=== PATIENT | female | born 1980 | race Caucasian/White ===

== ENCOUNTER 2023-07-21 07:32 | Outpatient (AMB) | payer BC, SELFPAY ==
--- NOTE | 2023-07-21 07:42 | A.OFFPC_ITS ---
Vital Signs 07/21/23 07:47 Height 5 ft 6 in Weight 219 lb BMI 35.3 BP 130/85 Blood Pressure Location Lt brachial Position Sitting Pulse 75 Pulse Source Pulse Oximeter Pulse Oximetry (%) 98 Oxygen Delivery Method Room Air Intake Visit Reasons: New patient-requesting physical Intake Note: Pt is here today as a New Patient for a PE Allergies mold Adverse Reaction (Uncoded 07/21/23 07:47) cough Medication List - Last Reconciled 07/21/23 by Janeth Villalobos MD No Known Home Meds Tobacco use date assessed: 07/21/23 Dental Screening Dental Screen Date: 07/21/23 Did you have a dental visit in the last 12 months?: No Was dental information given to patient?: No HPI New patient-requesting physical HPI Details Patient presents for new patient physical PFSH Family History (Updated 07/21/23 @ 08:12 by Janeth Villalobos MD) Father DM (diabetes mellitus) Social History (Updated 07/21/23 @ 08:20 by Janeth Villalobos MD) 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 1. Little interest or pleasure in doing things: not at all 2. Feeling down, depressed, or hopeless: several days 3. Trouble falling or staying asleep, or sleeping too much: not at all 4. Feeling tired or having little energy: several days 5. Poor appetite or overeating: several days 6. Feeling bad about yourself - or that you are a failure or have let yourself or your family down: not at all 7. Trouble concentrating on things, such as reading the newspaper or watching television: not at all 8. Moving or speaking so slowly that other people could have noticed. Or the opposite - being so fidgety or restless that you have been moving around a lot more than usual: not at all 9. Thoughts that you would be better off or of hurting yourself in some way: not at all Total score: 3 Depression Screening Interpretation: Negative Depression Screening Done: Yes Source: Developed by Drs. Charan Rodriguez, Noe Gifford and colleagues, with an educational terese from [employer]. Thrive Questionnaire Date Thrive assessed: 07/21/23 I am a: Patient What is your living situation today?: I have a steady place to live Within the past 12 months, did the food you bought not last and you didn't have the money to get more?: Never true Within the past 12 months, did you worry whether your food would run out before you got money to buy more?: Never true Do you have trouble paying for medicines?: No Do you have trouble getting transportation to medical appointments?: No Do you have trouble paying your heating and electricity bill?: No Do you have trouble taking care of your child, family member or friend?: No Do you have trouble with day-to-day activities such as bathing, preparing meals, shopping, managing finances, etc.?: No Are you currently unemployed and looking for a job?: No Are you interested in more education?: No THRIVE Score: 0 AUDIT C Alcohol Use Questionnaire (AUDIT-C) 1. How often do you have a drink containing alcohol?: Monthly or less 2. How many drinks containing alcohol do you have on a typical day when you are drinking?: 1 or 2 3. How often do you have six or more drinks on one occasion?: Never Total Score: 1 SAMRA-7 AMB Questionnaire SAMRA-7 Date SAMAR - 7 assessed: 07/21/23 Feeling nervous, anxious, or on edge: 0 = Not at all Not being able to stop or control worryin = Several days Worrying too much about different things: 0 = Not at all Trouble relaxin = Not at all Being so restless that it is hard to sit still: 0 = Not at all Becoming easily annoyed or irritable: 1 = Several days Feeling afraid as if something awful might happen: 0 = Not at all Total SAMRA-7 score (0-4 normal; 5-9 mild; 10-14 moderate; 15-21 severe): 2 Source: Developed by Elisabet Willett Kurt Kroenke and colleagues, with an educational terese from [employer]. Review of Systems Const All systems reviewed & are unremarkable except as noted in HPI and below Reports no additional complaints Eyes Reports no additional complaints ENT Reports no additional complaints Card Reports no additional complaints Resp Reports no additional complaints GI Reports no additional complaints Reports no additional complaints Physical exam (Primary Care) Vital Signs: Last Vital Signs Pulse 75 07/21/23 07:47 BP 130/90 H 07/21/23 07:47 Pulse Ox 98 07/21/23 07:47 Oxygen Delivery Method Room Air 07/21/23 07:47 BMI result Body Mass Index 35.3 Tobacco/Smoking Status: Tobacco use Status Tobacco use date assessed 07/21/23 07/21/23 07:52 Patient Tobacco Use Status Former Tobacco user 07/21/23 08:20 e-Cigarette/Vaping Use Never Used 07/21/23 08:20 PHQ-9: PHQ-9 Score PHQ-9: Total score 3 07/21/23 08:08 Depression Screening Interpretation: Negative Thrive Assessment: Date of Thrive Assessment Date Thrive assessed 07/21/23 07/21/23 07:54 Const General: no acute distress HENMT Head: Yes normal to inspection Face and sinus: Yes normal facial exam Mouth: Normal oral and palatal mucosa present Eyes General: appearance normal, both eyes and all related structures Neck Neck: Yes no lymphadenopathy and Yes supple Resp Effort & Inspection: normal respiratory effort Auscultation: clear to auscultation bilaterally Cardio Rhythm: regular rhythm Heart sounds: S1 normal heart sound present and S2 normal heart sound present GI Inspection: Yes normal to inspection Palpation (GI): Soft to palpation Percussion: Yes normal to percussion Auscultation: normal bowel sounds Assessment and Plan Assessment & Plan (1) History of appendectomy: Code(s): Z90.49 - Acquired absence of other specified parts of digestive tract (2) Normal pelvic exam: Comment: Dr. 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 She will return for fasting blood work. Screening colonoscopy discussed with the patient she declined she agreed to Cologuard. We will borderline elevated blood pressure low-sodium diet regular exercise weight loss discussed with the patient follow-up in 2 months Orders: Orders Vitamin D 25-OH Total Today Z00.00 - Encounter for general adult medical examination without abnormal findings Lipid Panel Today Z00.00 - Encounter for general adult medical examination without abnormal findings Complete Blood Count Auto Diff Today Z00.00 - Encounter for general adult medical examination without abnormal findings TSH reflex Free T4 Today Z00.00 - Encounter for general adult medical examination without abnormal findings Comprehensive [place]. Panel Fast Today Z00.00 - Encounter for general adult medical examination without abnormal findings Referrals Cologuard Test Z12.11 - Encounter for screening for malignant neoplasm of colon, Z12.12 - Encounter for screening for malignant neoplasm of rectum Inventory Technician Nutrition Referral E66.3 - Overweight Coding Level of Care Code New Pt Prev Care 40-64y(09454) Diagnoses History of appendectomy Z90.49 Normal pelvic exam Z01.419 Hx of screening mammography Z92.89 Annual physical exam Z00.00
[2023-07-21 07:47] VITALS: BP 130/85; PULSE 75; O2SAT 98; BMI 35.3
== END 2023-07-21 09:02 | disposition home or self-care (01) ==
PROVIDERS: PCP Internal Medicine; Visit Provider Internal Medicine
DX: Z90.49 Acquired absence of other specified parts of digestive tract (principal); Z01.419 Encounter for gynecological examination (general) (routine) without abnormal findings; Z92.89 Personal history of other medical treatment; Z00.00 Encounter for general adult medical examination without abnormal findings
CPT/HCPCS: 99386

== ENCOUNTER 2023-07-28 08:01 | Outpatient (REF) | payer BC, SELFPAY ==
[2023-07-28 10:36] LABS: MANUAL DIFF FLAG NO
[2023-07-28 10:45] LABS: Basophils Percent Auto 0.7 % (0-2); Imm Gran Abs Auto 0.02 X10*3/uL (0.00-0.03); Neutrophils Absolute Auto 5.2 x10*3/uL (2.0-8.3)
[2023-07-28 11:34] LABS: Alanine Aminotransferase 13 U/L (0-31); Albumin Level 4.2 g/dL (3.5-5.0); Alkaline Phosphatase 69 U/L (39-117); Aspartate Amino Transferase 12 U/L (5-31); Bilirubin Total 0.5 mg/dL (0.0-1.0); Blood Urea Nitrogen 22 mg/dL (9-16); Calcium 9.1 mg/dL (8.4-10.2); Cholesterol 195 mg/dL (<200); Estimated Glomerular Filt Rate > 60; Glucose Fasting 91 mg/dL (60-99); HDL Cholesterol 67 mg/dL (>40); LDL Cholesterol Calculated 117 mg/dL (<100); Potassium 4.3 mmol/L (3.3-5.1); Sodium 140 mmol/L (135-145); Total Protein 7.6 g/dL (6.5-8.0); Triglycerides 59 mg/dL (<150)
[2023-07-28 11:39] LABS: TSH reflex Free T4 0.33 uIU/mL (0.32-4.0); Vitamin D 25-OH Total 17.8 ng/mL (>30)
== END 2023-07-28 08:02 | disposition home or self-care (01) ==
LOC: HO.HMGCLDS 08:01
PROVIDERS: PCP Internal Medicine; Visit Provider Internal Medicine
DX: Z00.00 Encounter for general adult medical examination without abnormal findings (principal)
CPT/HCPCS: 36415; 80053; 80061; 82306; 84443; 85025

== ENCOUNTER 2023-09-22 13:32 | Outpatient (AMB) | payer BC, SELFPAY ==
--- NOTE | 2023-09-22 13:53 | A.OFFPC_ITS ---
Vital Signs 09/22/23 14:01 Height 5 ft 6 in Weight 218 lb BMI 35.2 BP 128/84 Blood Pressure Location Lt brachial Position Sitting Pulse 85 Pulse Source Pulse Oximeter Pulse Oximetry (%) 99 Oxygen Delivery Method Room Air Intake Visit Reasons: 2M F/U Intake Note: Pt is here today for 2 months follow up visit. Allergies mold Adverse Reaction (Uncoded 09/22/23 14:04) cough Medication List - Last Reconciled 09/22/23 by Janeth Villalobos MD No Known Home Meds Tobacco use date assessed: 09/22/23 Dental Screening Dental Screen Date: 07/21/23 HPI 2M F/U HPI Details Patient presents for the follow-up. She has been exercising started to dance salsa daily for at least 15 minutes. 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 Charan Rodriguez, Elisabet Shi, Noe Ramos and colleagues, with an educational terese from [employer]. Review of Systems Const All systems reviewed & are unremarkable except as noted in HPI and below ENT Reports no additional complaints Card Reports no additional complaints Resp Reports no additional complaints GI Reports no additional complaints Reports no additional complaints Physical exam (Primary Care) Vital Signs: Last Vital Signs Pulse 85 09/22/23 14:01 BP 128/84 09/22/23 14:01 Pulse Ox 99 09/22/23 14:01 Oxygen Delivery Method Room Air 09/22/23 14:01 BMI result Body Mass Index 35.2 Tobacco/Smoking Status: Tobacco use Status Tobacco use date assessed 09/22/23 09/22/23 14:06 Patient Tobacco Use Status Former Tobacco user 09/22/23 13:53 e-Cigarette/Vaping Use Never Used 09/22/23 13:53 Thrive Assessment: Date of Thrive Assessment Date Thrive assessed 07/21/23 09/22/23 13:53 Const General: no acute distress HENMT Face and sinus: Yes normal facial exam Neck Neck: Yes supple Resp Effort & Inspection: normal respiratory effort Auscultation: clear to auscultation bilaterally Cardio Rhythm: regular rhythm Heart sounds: S1 normal heart sound present and S2 normal heart sound present Assessment and Plan Assessment & Plan (1) Low vitamin D level: Code(s): R79.89 - Other specified abnormal findings of blood chemistry Plan: Continue vitamin-D supplement check the level in 2 months (2) Elevated blood pressure reading in office without diagnosis of hypertension: Code(s): R03.0 - Elevated blood-pressure reading, without diagnosis of hypertension Plan: Low-sodium diet regular physical activity weight loss discussed with the patient follow-up in 6 months Orders: Orders Vitamin D 25-OH Total 2 Months R79.89 - Other specified abnormal findings of blood chemistry Coding Level of Care Code Est Pt Level 3 (51566) Diagnoses Low vitamin D level R7. Elevated blood pressure reading in office without diagnosis of hypertension R03.0
[2023-09-22 14:01] VITALS: BP 128/84; PULSE 85; O2SAT 99; BMI 35.2
== END 2023-09-22 14:45 | disposition home or self-care (01) ==
PROVIDERS: PCP Internal Medicine; Visit Provider Internal Medicine
DX: R79.89 Other specified abnormal findings of blood chemistry (principal); R03.0 Elevated blood-pressure reading, without diagnosis of hypertension
CPT/HCPCS: 99213

== ENCOUNTER 2024-02-29 12:23 | Outpatient (AMB) | payer BC, SELFPAY ==
--- NOTE | 2024-02-29 12:33 | MHC.PC.OV ---
Vital Signs 02/29/24 12:34 Height 5 ft 6 in Weight 225 lb BMI 36.3 BP 122/80 Blood Pressure Location Rt brachial Position Sitting Pulse 78 Pulse Source Pulse Oximeter Pulse Oximetry (%) 97 Oxygen Delivery Method Room Air Intake Visit Reasons: 6M F/U Intake Note: pt is here for 6 month follow up Director External Communications Required: No Accompanied by: Self / Same As Patient Allergies mold Adverse Reaction (Uncoded 02/29/24 12:34) cough Medication List - Last Reconciled 02/29/24 by Janeth Villalobos MD tirzepatide (weight loss) (Zepbound) 2.5 mg (0.5 mL) subcut QWEEK Tobacco use date assessed: 09/22/23 Dental Screening Dental Screen Date: 07/21/23 HPI 6M F/U HPI Details Patient presents for the follow-up she has been decreasing caloric intake increasing physical activity for over 6 months and has been unable to lose weight. 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 1. Little interest or pleasure in doing things: not at all 2. Feeling down, depressed, or hopeless: not at all 3. Trouble falling or staying asleep, or sleeping too much: several days 4. Feeling tired or having little energy: several days 5. Poor appetite or overeating: several days 6. Feeling bad about yourself - or that you are a failure or have let yourself or your family down: not at all 7. Trouble concentrating on things, such as reading the newspaper or watching television: not at all 8. Moving or speaking so slowly that other people could have noticed. Or the opposite - being so fidgety or restless that you have been moving around a lot more than usual: not at all 9. Thoughts that you would be better off or of hurting yourself in some way: not at all Total score: 3 Depression Screening Interpretation: Negative Depression Screening Done: Yes 39068 - PHQ-9 Billing: Yes Source: Developed by Drs. Charan Rodriguez, Elisabet Shi, Noe Ramos and colleagues, with an educational terese from [employer]. Thrive Questionnaire Date Thrive assessed: 02/29/24 I am a: Patient What is your living situation today?: I have a steady place to live Within the past 12 months, did the food you bought not last and you didn't have the money to get more?: Never true Within the past 12 months, did you worry whether your food would run out before you got money to buy more?: Never true Do you have trouble paying for medicines?: No Do you have trouble getting transportation to medical appointments?: No Do you have trouble paying your heating and electricity bill?: No Do you have trouble taking care of your child, family member or friend?: No Do you have trouble with day-to-day activities such as bathing, preparing meals, shopping, managing finances, etc.?: No Are you currently unemployed and looking for a job?: No Are you interested in more education?: No Please select the resources that you would like help with: None Currently or been in a relationship where the following occur: No concerns reported THRIVE Score: 0 AUDIT C Alcohol Use Questionnaire (AUDIT-C) 1. How often do you have a drink containing alcohol?: 2-4 times a month 2. How many drinks containing alcohol do you have on a typical day when you are drinking?: 1 or 2 3. How often do you have six or more drinks on one occasion?: Never Total Score: 2 Score Reviewed/Action Taken: Yes SAMRA-7 AMB Questionnaire SAMRA-7 Date SAMRA - 7 assessed: 02/29/24 Feeling nervous, anxious, or on edge: 0 = Not at all Not being able to stop or control worryin = Not at all Worrying too much about different things: 0 = Not at all Trouble relaxin = Several days Being so restless that it is hard to sit still: 0 = Not at all Becoming easily annoyed or irritable: 1 = Several days Feeling afraid as if something awful might happen: 0 = Not at all Total SAMRA-7 score (0-4 normal; 5-9 mild; 10-14 moderate; 15-21 severe): 2 Source: Developed by Drs. Charan Rodriguez, Elisabet Shi, Noe Ramos and colleagues, with an educational terese from [employer]. SAMRA-7 Assessment Billing SAMRA-7 Assessment Tool: SAMRA-7 Assessment 83080 Review of Systems Const All systems reviewed & are unremarkable except as noted in HPI and below ENT Reports no additional complaints Card Reports no additional complaints Resp Reports no additional complaints GI Reports no additional complaints Reports no additional complaints Physical exam (Primary Care) Vital Signs: Last Vital Signs Pulse 78 02/29/24 12:34 BP 122/80 02/29/24 12:34 Pulse Ox 97 02/29/24 12:34 Oxygen Delivery Method Room Air 02/29/24 12:34 BMI result Body Mass Index 36.3 Tobacco/Smoking Status: Tobacco use Status Tobacco use date assessed 09/22/23 02/29/24 12:38 Patient Tobacco Use Status Former Tobacco user 02/29/24 12:38 e-Cigarette/Vaping Use Never Used 02/29/24 12:38 PHQ-9: PHQ-9 Score PHQ-9: Total score 3 02/29/24 12:38 Depression Screening Interpretation: Negative Thrive Assessment: Date of Thrive Assessment Date Thrive assessed 02/29/24 02/29/24 12:38 Currently or been in a relationship where the following occur: No concerns reported Const General: no acute distress HENMT Throat: Yes posterior oropharynx normal Neck Neck: Yes supple Resp Effort & Inspection: normal respiratory effort Auscultation: clear to auscultation bilaterally Cardio Rhythm: regular rhythm Heart sounds: S1 normal heart sound present and S2 normal heart sound present GI Inspection: Yes normal to inspection Coding Level of Care Code Est Pt Level 4 (49654) Diagnoses Low vitamin D level R79.89 Elevated blood pressure reading in office without diagnosis of hypertension R03.0 Overweight E66.3 Additional Codes SAMRA-7 Assessment Billing - SAMRA-7 Assessment Tool: SAMRA-7 Assessment 36422 ([id number]) PHQ-9 - 93603 - PHQ-9 Billing: Yes ([id number]) Assessment & Plan Assessment & Plan (1) Low vitamin D level: Code(s): R79.89 - Other specified abnormal findings of blood chemistry Category: Medical Plan: Continue vitamin-D supplement (2) Elevated blood pressure reading in office without diagnosis of hypertension: Code(s): R03.0 - Elevated blood-pressure reading, without diagnosis of hypertension Category: Medical Plan: Continue low-sodium diet regular physical activity and will monitor blood pressure and follow-up for physical in 6 months (3) Overweight: Comment: BMI 36.3 02/2024 Code(s): E66.3 - Overweight Category: Medical Plan: CONTINUE DECREASING CALORIC INTAKE INCREASING PHYSICAL ACTIVITY DISCUSSED WITH THE PATIENT. Zepbound 2.5 mg weekly will be started for the 1st month to facilitate weight lost and decrease risk of coronary artery disease [place] CVA hypertension. If patient tolerates medication well the dose will be increased next month and patient will follow-up in 2 months Orders: Orders Lipid Panel 7 Months R03.0 - Elevated blood-pressure reading, without diagnosis of hypertension, R79.89 - Other specified abnormal findings of blood chemistry, Z00.00 - Encounter for general adult medical examination without abnormal findings Comprehensive [place]. Panel Fast 7 Months R03.0 - Elevated blood-pressure reading, without diagnosis of hypertension, R79.89 - Other specified abnormal findings of blood chemistry, Z00.00 - Encounter for general adult medical examination without abnormal findings Complete Blood Count Auto Diff 7 Months R03.0 - Elevated blood-pressure reading, without diagnosis of hypertension, R79.89 - Other specified abnormal findings of blood chemistry, Z00.00 - Encounter for general adult medical examination without abnormal findings TSH reflex Free T4 7 Months R03.0 - Elevated blood-pressure reading, without diagnosis of hypertension, R79.89 - Other specified abnormal findings of blood chemistry, Z00.00 - Encounter for general adult medical examination without abnormal findings Vitamin D 25-OH Total 7 Months R03.0 - Elevated blood-pressure reading, without diagnosis of hypertension, R79.89 - Other specified abnormal findings of blood chemistry, Z00.00 - Encounter for general adult medical examination without abnormal findings Medications: New tirzepatide (weight loss) (Zepbound) for 4 weeks 2.5 mg (0.5 mL) subcut QWEEK 2 mL 0RF
[2024-02-29 12:34] VITALS: BP 122/80; PULSE 78; O2SAT 97; BMI 36.3
== END 2024-02-29 13:56 | disposition home or self-care (01) ==
PROVIDERS: PCP Internal Medicine; Visit Provider Internal Medicine
DX: R79.89 Other specified abnormal findings of blood chemistry (principal); R03.0 Elevated blood-pressure reading, without diagnosis of hypertension; E66.3 Overweight

== ENCOUNTER → 2024-02-29 12:23 | Outpatient (BNVA) | payer BC, SELFPAY | PROVIDERS: PCP Internal Medicine; Visit Provider Internal Medicine | DX: E55.9 Vitamin D deficiency, unspecified (principal); R03.0 Elevated blood-pressure reading, without diagnosis of hypertension; E66.3 Overweight; Z68.36 Body mass index [BMI] 36.0-36.9, adult | CPT/HCPCS: 96127 ==

== ENCOUNTER 2024-03-31 08:16 | Outpatient (AMB) | payer BC, SELFPAY ==
--- NOTE | 2024-03-31 08:20 | MHC.OFFWIV ---
Intake Vital Signs 03/31/24 08:21 Height 5 ft 6 in Weight 217 lb BMI 35.0 BP 130/80 Blood Pressure Location Lt brachial Position Sitting Pulse 87 Pulse Source Pulse Oximeter Temp 98.6 F Temp Source Oral Pulse Oximetry (%) 98 Oxygen Delivery Method Room Air Intake Visit Reasons: EP-fever, cough, headaches, body ache Intake Note: Patient here for fever, cough, headaches and body aches that started Wednesday, but she has had fevers for 4 days straight. Patient Tobacco Use Status: Former Tobacco user Allergies mold Adverse Reaction (Uncoded 03/31/24 08:23) cough Do you need a note to return to daycare/school/sports/work: Yes HPI HPI Comments History of Present Illness Details History - The patient is a 43-year-old female presenting with persistent fever, cough, and other associated symptoms. - The symptoms initiated with a throat tickle and occasional cough 5 days ago and progressed to a more pronounced cough, fever up to 102?F, headache, and body aches by the next day. - Fever fluctuated between 100?F and 102?F, with fatigue, cold extremities, and difficulty in temperature regulation for the last 5 days - Yesterday, she saw an improvement with the remission of the fever, which unfortunately recurred this morning with a milder intensity. - Patient describes the cough as productive with yellow mucus, and associates symptoms like fatigue and sweating. - Patient denies shortness of breath or wheezing, denies hx of asthma or COPD. - Noteworthy exposures include a recent visit to [place] and interaction with six cats, with a history suggesting potential allergic rhinitis; currently managing symptoms with ibuprofen and Mucinex. Physical Exam General: Cooperative, healthy appearing, comfortable and no acute distress Orientation/consciousness: Patient oriented x3 Limitations: No limitations Head: Normal to inspection Ears: Hearing grossly normal bilaterally, external ears normal and TM's normal bilaterally Nose: Normal external nose present, Normal nares present and slight bloody nasal discharge present Face and sinus: Normal facial exam and Yes sinuses nontender Mouth: Normal oral and palatal mucosa present and moist mucous membranes Throat: Yes tonsils normal, Yes uvula midline. Posterior oropharynx erythema Eyes: Appearance normal, both eyes and all related structures Neck: Normal visual inspection Respiratory: Clear to auscultation bilaterally. Normal respiratory effort, able to speak in complete sentences, Actively coughing, no respiratory distress, not tachypneic, no tripod positioning and no use of accessory muscles Cardiovascular: Regular rate and rhythm. 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, Housing: Other Housing Other:: mobile home Patient Tobacco Use Status: Former Tobacco user e-Cigarette/Vaping Use: Never Used service: No Current occupational status: employed Cognitive needs: No Hearing needs: No Vision needs: Yes Review of Systems Const All systems reviewed & are unremarkable except as noted in HPI and below Physical Exam Vital Signs: Last Vital Signs Temp 98.6 F 03/31/24 08:21 Pulse 87 03/31/24 08:21 BP 130/80 03/31/24 08:21 Pulse Ox 98 03/31/24 08:21 Oxygen Delivery Method Room Air 03/31/24 08:21 BMI result Body Mass Index 35.0 Assessment & Plan Assessment & Plan (1) URI, acute: Code(s): J06.9 - Acute upper respiratory infection, unspecified Plan: Plan VSS, pt well appearing, PE unremarkable. The current presentation, characterized by a persistent fever and cough along with other symptoms, strongly suggests a viral syndrome. Diagnostic testing for influenza, COVID-19, and RSV is initiated to validate the clinical suspicion. Based on the underlying symptoms, the interim treatment plan targets symptom relief through [id number] medications. Furthermore, to address bloody/dry nasal passages, saline nasal spray is recommended in addition to Flonase to avoid worsening symptoms. Patients are advised on hydration and rest while self-monitoring for symptom progression, particularly concerning fever and cough persistence, to prevent potential complications. Follow-up on diagnostic results will further refine the care plan as needed. Patient was informed and verbally consented to the use of an ambient scribe for clinic note documentation during this visit Orders: Orders SARS-CoV2/FLU/RSV Today J06.9 - Acute upper respiratory infection, unspecified Coding Level of Care Code Est Pt Level 3 (09253) Diagnoses URI, acute J06.9
[2024-03-31 08:21] VITALS: BP 130/80; PULSE 87; TEMP 37; O2SAT 98; BMI 35.0
== END 2024-03-31 09:29 | disposition home or self-care (01) ==
PROVIDERS: PCP Internal Medicine; Visit Provider Physician Assistant
DX: J06.9 Acute upper respiratory infection, unspecified (principal)

== ENCOUNTER 2024-03-31 08:16 | Outpatient (REF) | payer BC, SELFPAY ==
[2024-03-31 11:11] LABS: Influenza A PCR POSITIVE (Negative); Influenza B PCR NEGATIVE (Negative); Resp Syncy Virus RNA Qual PCR NEGATIVE (Negative); SARS COV2 PCR INHOUSE NEGATIVE (Negative)
== END 2024-03-31 08:17 | disposition home or self-care (01) ==
LOC: HO.LAB 08:16
PROVIDERS: Physician Assistant; PCP Internal Medicine
DX: J06.9 Acute upper respiratory infection, unspecified (principal)
CPT/HCPCS: 0241U

== ENCOUNTER 2024-07-04 08:36 | Outpatient (REF) | payer BC, SELFPAY ==
[2024-07-04 11:24] LABS: Influenza A PCR NEGATIVE (Negative); Influenza B PCR NEGATIVE (Negative); Resp Syncy Virus RNA Qual PCR NEGATIVE (Negative); SARS COV2 PCR INHOUSE NEGATIVE (Negative)
== END 2024-07-04 08:37 | disposition home or self-care (01) ==
LOC: HO.LNP 08:36
PROVIDERS: PCP Internal Medicine; Visit Provider Physician Assistant
DX: J06.9 Acute upper respiratory infection, unspecified (principal)
CPT/HCPCS: 0241U

== ENCOUNTER 2024-07-04 08:36 | Outpatient (AMB) | payer BC, SELFPAY ==
[2024-07-04 08:43] VITALS: BP 128/80; PULSE 81; O2SAT 96; BMI 35.0
--- NOTE | 2024-07-04 08:43 | MHC.OFFWIV ---
Intake Vital Signs 07/04/24 08:43 Height 5 ft 6 in Weight 217 lb BMI 35.0 BP 128/80 Blood Pressure Location Lt brachial Position Sitting Pulse 81 Pulse Source Pulse Oximeter Pulse Oximetry (%) 96 Oxygen Delivery Method Room Air Intake Visit Reasons: EP cough a little SOB Intake Note: Patient here for cough, sinus congestion, slight sob that has been present for about 1 week. Patient Tobacco Use Status: Former Tobacco user Allergies mold Adverse Reaction (Uncoded 07/04/24 08:45) cough Do you need a note to return to daycare/school/sports/work: No HPI HPI Comments History of Present Illness Details History The patient is a 44-year-old female presenting with cough and shortness of breath. The cough has persisted for approximately ten days and is primarily characterized by postnasal drip and a tickling sensation in the throat leading to coughing fits. Symptoms have been variably responsive to [id number] cough remedies. She reports episodes of non-exertional shortness of breath and has a history of smoking cessation 23 years ago. 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 No past history of asthma or COPD is noted. There are no fever or body aches reported. History of seasonal allergies. Physical Exam General: Cooperative, healthy appearing, comfortable and no acute distress Orientation/consciousness: Patient oriented x3 Limitations: No limitations Head: Normal to inspection Ears: Hearing grossly normal bilaterally, external ears normal and TM's normal bilaterally Nose: Normal external nose present, Normal nares present and No nasal discharge present Face and sinus: Normal facial exam and Yes sinuses nontender Mouth: Normal oral and palatal mucosa present and moist mucous membranes Throat: Yes tonsils normal, Yes uvula midline. Posterior oropharynx erythema Eyes: Appearance normal, both eyes and all related structures Neck: Normal visual inspection Respiratory: Clear to auscultation bilaterally. Normal respiratory effort, able to speak in complete sentences, Actively coughing, no respiratory distress, not tachypneic, no tripod positioning and no use of accessory muscles Cardiovascular: Regular rate and rhythm. 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, Housing: Other Housing Other:: mobile home Patient Tobacco Use Status: Former Tobacco user e-Cigarette/Vaping Use: Never Used service: No Current occupational status: employed Cognitive needs: No Hearing needs: No Vision needs: Yes Review of Systems Const All systems reviewed & are unremarkable except as noted in HPI and below Physical Exam Vital Signs: Last Vital Signs Pulse 81 07/04/24 08:43 BP 128/80 07/04/24 08:43 Pulse Ox 96 07/04/24 08:43 Oxygen Delivery Method Room Air 07/04/24 08:43 BMI result Body Mass Index 35.0 Assessment & Plan Assessment & Plan (1) URI, acute: Code(s): J06.9 - Acute upper respiratory infection, unspecified Plan: VSS, pt well appearing and PE unremarkable. The patient will undergo testing for influenza, COVID-19, and RSV. An albuterol inhaler will be prescribed for managing shortness of breath, with clear instructions on use and dosage. Tessalon Perles will be administered for nocturnal cough suppression while ensuring daytime cough clearance. A Z-Alexis will be prescribed but held pending viral test results to address the duration of symptoms exceeding typical viral timelines. Education on medication use was provided to the patient to understand the plan's rationale and expected outcomes. Orders: Orders SARS-CoV2/FLU/RSV Today R09.89 - Other specified symptoms and signs involving the circulatory and respiratory systems Medications: New benzonatate 200 mg PO BEDTIME PRN 10 caps 0RF cough albuterol sulfate 90 mcg/actuation 2 puffs inhalation Q6H PRN 8.5 grams 0RF shortness of breath or wheezing or cough azithromycin For 250 mg dose pack: take 500 mg today (day 1), then 250 mg for 4 days (days 2-5) PO 6 tabs 0RF Coding Level of Care Code Est Pt Level 3 (50914) Diagnoses URI, acute J06.9
== END 2024-07-04 09:39 | disposition home or self-care (01) ==
PROVIDERS: PCP Internal Medicine; Visit Provider Physician Assistant
DX: J06.9 Acute upper respiratory infection, unspecified (principal)

== ENCOUNTER 2024-07-12 13:21 | Outpatient (AMB) | payer BC, SELFPAY ==
[2024-07-12 14:06] VITALS: BP 120/74; PULSE 78; RESP 20; O2SAT 97; BMI 34.5
--- NOTE | 2024-07-12 14:06 | MHC.PC.OV ---
Vital Signs 07/12/24 14:06 Height 5 ft 6 in Weight 214 lb BMI 34.5 BP 120/74 Blood Pressure Location Rt brachial Position Sitting Respiration 20 Pulse 78 Pulse Source Pulse Oximeter Pulse Oximetry (%) 97 Oxygen Delivery Method Room Air Intake Visit Reasons: Discuss going up on dose for zepbound Allergies mold Adverse Reaction (Uncoded 07/12/24 14:11) cough Medication List - Last Reconciled 07/12/24 by Janeth Villalobos MD albuterol sulfate 90 mcg/actuation 2 puffs inhalation Q6H PRN Zepbound (tirzepatide (weight loss)) 5 mg (0.5 mL) subcut QWEEK NS Tobacco use date assessed: 07/12/24 Dental Screening Dental Screen Date: 07/12/24 Did you have a dental visit in the last 12 months?: Yes Did you have a dental problem in the last 6 months where you did not have access to dental care?: No Was dental information given to patient?: Patient has dentist HPI Discuss going up on dose for zepbound HPI Details Pt presents for follow-up. She has been taking Zepbound for 4 months and lost 10 lb. Patient has been decreasing caloric intake increasing physical activity and would like to increase the dose of Zepbound. 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 1. Little interest or pleasure in doing things: not at all 2. Feeling down, depressed, or hopeless: not at all 3. Trouble falling or staying asleep, or sleeping too much: several days 4. Feeling tired or having little energy: several days 5. Poor appetite or overeating: not at all 6. Feeling bad about yourself - or that you are a failure or have let yourself or your family down: not at all 7. Trouble concentrating on things, such as reading the newspaper or watching television: not at all 8. Moving or speaking so slowly that other people could have noticed. Or the opposite - being so fidgety or restless that you have been moving around a lot more than usual: not at all 9. Thoughts that you would be better off or of hurting yourself in some way: not at all Total score: 2 Depression Screening Interpretation: Negative Depression Screening Done: Yes 68325 - PHQ-9 Billing: Yes Source: Developed by Drs. Charan Rodriguez, Elisabet Shi, Noe Ramos and colleagues, with an educational terese from [employer]. Thrive Questionnaire Date Thrive assessed: 07/10/24 I am a: Patient What is your living situation today?: I have a steady place to live Within the past 12 months, did the food you bought not last and you didn't have the money to get more?: Never true Within the past 12 months, did you worry whether your food would run out before you got money to buy more?: Never true Do you have trouble paying for medicines?: No Do you have trouble getting transportation to medical appointments?: No Do you have trouble paying your heating and electricity bill?: No Do you have trouble taking care of your child, family member or friend?: No Do you have trouble with day-to-day activities such as bathing, preparing meals, shopping, managing finances, etc.?: No Are you currently unemployed and looking for a job?: No Are you interested in more education?: Yes Please select the resources that you would like help with: Education Currently or been in a relationship where the following occur: I choose not to answer THRIVE Score: 0 AUDIT C Alcohol Use Questionnaire (AUDIT-C) 1. How often do you have a drink containing alcohol?: 2-4 times a month 2. How many drinks containing alcohol do you have on a typical day when you are drinking?: 1 or 2 3. How often do you have six or more drinks on one occasion?: Never Total Score: 2 SAMRA-7 AMB Questionnaire SAMRA-7 Date SAMRA - 7 assessed: 07/12/24 Feeling nervous, anxious, or on edge: 0 = Not at all Not being able to stop or control worryin = Not at all Worrying too much about different things: 0 = Not at all Trouble relaxin = Not at all Being so restless that it is hard to sit still: 0 = Not at all Becoming easily annoyed or irritable: 0 = Not at all Feeling afraid as if something awful might happen: 0 = Not at all Total SAMRA-7 score (0-4 normal; 5-9 mild; 10-14 moderate; 15-21 severe): 0 Source: Developed by Drs. Charan Rodriguez, Elisabet Shi, Noe Ramos and colleagues, with an educational terese from [employer]. SAMRA-7 Assessment Billing SAMRA-7 Assessment Tool: SAMRA-7 Assessment 62427 Review of Systems Const All systems reviewed & are unremarkable except as noted in HPI and below Eyes Reports no additional complaints ENT Reports no additional complaints Card Reports no additional complaints Resp Reports no additional complaints GI Reports no additional complaints Reports no additional complaints Physical exam (Primary Care) Vital Signs: Last Vital Signs Pulse 78 07/12/24 14:06 Resp 20 07/12/24 14:06 BP 120/74 07/12/24 14:06 Pulse Ox 97 07/12/24 14:06 Oxygen Delivery Method Room Air 07/12/24 14:06 BMI result Body Mass Index 34.5 Tobacco/Smoking Status: Tobacco use Status Tobacco use date assessed 07/12/24 07/12/24 14:16 Patient Tobacco Use Status Former Tobacco user 07/12/24 14:06 e-Cigarette/Vaping Use Never Used 07/12/24 14:06 PHQ-9: PHQ-9 Score PHQ-9: Total score 2 07/12/24 14:16 Depression Screening Interpretation: Negative Thrive Assessment: Date of Thrive Assessment Date Thrive assessed 07/10/24 07/12/24 14:06 Currently or been in a relationship where the following occur: I choose not to answer Const General: no acute distress HENMT Head: Yes normal to inspection Eyes General: appearance normal, both eyes and all related structures Resp Effort & Inspection: normal respiratory effort Auscultation: clear to auscultation bilaterally Cardio Rhythm: regular rhythm Heart sounds: S1 normal heart sound present and S2 normal heart sound present GI Inspection: Yes normal to inspection Palpation (GI): Soft to palpation Percussion: Yes normal to percussion Coding Level of Care Code Est Pt Level 3 (74120) Diagnoses Overweight E66.3 Additional Codes SAMRA-7 Assessment Billing - SAMRA-7 Assessment Tool: SAMRA-7 Assessment 38179 ([id number]) PHQ-9 - 76678 - PHQ-9 Billing: Yes ([id number]) Assessment & Plan Assessment & Plan (1) Overweight: Comment: BMI 36.3 02/2024 Code(s): E66.3 - Overweight Category: Medical Plan: Increase Zepbound to 5 mg weekly. Continue decreasing caloric intake increasing physical activity patient will return in August for physical and fasting blood work Medications: New Zepbound (tirzepatide (weight loss)) 5 mg (0.5 mL) subcut QWEEK 2 mL 2RF NS
== END 2024-07-12 14:44 | disposition home or self-care (01) ==
LOC: HO.HMCC 13:22
PROVIDERS: PCP Internal Medicine; Visit Provider Internal Medicine
DX: E66.3 Overweight (principal)

== ENCOUNTER → 2024-07-12 13:21 | Outpatient (BNVA) | payer BC, SELFPAY | PROVIDERS: PCP Internal Medicine; Visit Provider Internal Medicine | DX: E66.3 Overweight (principal); Z68.36 Body mass index [BMI] 36.0-36.9, adult; Z79.899 Other long term (current) drug therapy | CPT/HCPCS: 96127 ==

== ENCOUNTER 2024-09-12 09:02 | Outpatient (REF) | payer BC, SELFPAY ==
[2024-09-12 10:21] LABS: MANUAL DIFF FLAG NO
[2024-09-12 10:27] LABS: Basophils Absolute Auto 0.1 X10*3/uL (0.0-0.2); Basophils Percent Auto 0.6 % (0-2); Eosinophils Absolute Auto 0.2 X10*3/uL (0.0-0.4); Eosinophils Percent Auto 1.8 % (0-4); Hematocrit 43.7 % (37.0-47.0); Hemoglobin 15.1 g/dl (12.0-16.0); Imm Gran Abs Auto 0.04 X10*3/uL (0.00-0.03); Imm Gran Pct Auto 0.4 % (0.0-0.4); Lymphocytes Absolute Auto 1.6 X10*3/uL (1.2-4.9); Lymphocytes Percent Auto 16.6 % (20-40); Mean Corpuscular HGB Conc 34.6 g/dl (31.0-35.0); Mean Corpuscular Hemoglobin 30.9 pg (27.0-33.0); Mean Corpuscular Volume 89.4 fL (80.0-98.0); Mean Platelet Volume 11.1 fL (9.4-12.3); Monocytes Absolute Auto 0.6 X10*3/uL (0.1-1.2); Monocytes Percent Auto 5.8 % (2-11); Neutrophils Percent Auto 74.8 % (45-73); Platelet Count 217 X10*3/uL (160-400); Red Blood Count 4.89 X10*6/uL (4.20-5.50); Red Cell Distribution Width 12.5 % (11.0-16.0); White Blood Count 9.4 X10*3/uL (4.8-10.8)
[2024-09-12 11:21] LABS: Alanine Aminotransferase 20 U/L (0-31); Albumin Level 4.1 g/dL (3.5-5.0); Alkaline Phosphatase 74 U/L (39-117); Anion Gap 11 (12-20); Aspartate Amino Transferase 20 U/L (5-31); Bilirubin Total 0.8 mg/dL (0.0-1.0); Blood Urea Nitrogen 16 mg/dL (9-16); Calcium 8.8 mg/dL (8.4-10.2); Carbon Dioxide 27 mmol/L (22-29); Chloride 106 mmol/L (96-108); Cholesterol 163 mg/dL (<200); Estimated Glomerular Filt Rate > 60; Glucose Fasting 69 mg/dL (60-99); HDL Cholesterol 62 mg/dL (>40); LDL Cholesterol Calculated 87 mg/dL (<100); Sodium 140 mmol/L (135-145); Total Protein 7.1 g/dL (6.5-8.0); Triglycerides 70 mg/dL (<150)
[2024-09-12 11:27] LABS: TSH reflex Free T4 0.71 uIU/mL (0.32-4.0); Vitamin D 25-OH Total 24.9 ng/mL (>30)
== END 2024-09-12 09:03 | disposition home or self-care (01) ==
LOC: HO.HMGCLDS 09:02
PROVIDERS: PCP Internal Medicine; Visit Provider Internal Medicine
DX: Z00.00 Encounter for general adult medical examination without abnormal findings (principal); R03.0 Elevated blood-pressure reading, without diagnosis of hypertension; R79.89 Other specified abnormal findings of blood chemistry
CPT/HCPCS: 36415; 80053; 80061; 82306; 84443; 85025

== ENCOUNTER 2024-09-25 11:48 | Outpatient (AMB) | payer BC, SELFPAY ==
--- NOTE | 2024-09-25 11:59 | MHC.PC.OV ---
Vital Signs 09/25/24 12:07 Height 5 ft 6 in Weight 213 lb BMI 34.4 BP 108/78 Blood Pressure Location Rt brachial Position Sitting Respiration 18 Pulse 90 Pulse Source Pulse Oximeter Temp 98.8 F Temp Source Oral Pulse Oximetry (%) 98 Oxygen Delivery Method Room Air Intake Visit Reasons: Annual PE Intake Note: Pt is here today for PE. Allergies mold Adverse Reaction (Uncoded 09/25/24 12:07) cough Medication List - Last Reconciled 09/25/24 by Janeth Villalobos MD albuterol sulfate 90 mcg/actuation 2 puffs inhalation Q6H PRN scopolamine base 1 patch transdermal Q3D PRN Zepbound (tirzepatide (weight loss)) 5 mg (0.5 mL) subcut QWEEK NS Tobacco use date assessed: 09/25/24 Dental Screening Dental Screen Date: 09/25/24 Did you have a dental visit in the last 12 months?: Yes Did you have a dental problem in the last 6 months where you did not have access to dental care?: No Was dental information given to patient?: Patient has dentist HPI Annual PE HPI Details Pt presents for PE. She complains of worsening motion sickness for the last few months. Patient has been taking Dramamine with occasionally relief but has been traveling a lot lately. Patient has been taking Zepbound 5 mg weekly decreasing caloric intake increasing physical activity. 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 home Patient Tobacco Use Status: Former Tobacco user e-Cigarette/Vaping Use: Never Used service: No Current occupational status: employed Cognitive needs: No Hearing needs: No Vision needs: Yes Questionnaire Thrive Questionnaire Date Thrive assessed: 07/10/24 I am a: Patient What is your living situation today?: I have a steady place to live Within the past 12 months, did the food you bought not last and you didn't have the money to get more?: Never true Within the past 12 months, did you worry whether your food would run out before you got money to buy more?: Never true Do you have trouble paying for medicines?: No Do you have trouble getting transportation to medical appointments?: No Do you have trouble paying your heating and electricity bill?: No Do you have trouble taking care of your child, family member or friend?: No Do you have trouble with day-to-day activities such as bathing, preparing meals, shopping, managing finances, etc.?: No Are you currently unemployed and looking for a job?: No Are you interested in more education?: Yes Please select the resources that you would like help with: Education Currently or been in a relationship where the following occur: I choose not to answer THRIVE Score: 0 SAMRA-7 AMB Questionnaire SAMRA-7 Date SAMRA - 7 assessed: 07/12/24 Source: Developed by Drs. Charan Rodriguez, Elisabet Shi, Noe Ramos and colleagues, with an educational terese from [employer]. Review of Systems Const All systems reviewed & are unremarkable except as noted in HPI and below Reports no additional complaints Eyes Reports no additional complaints ENT Reports no additional complaints Card Reports no additional complaints Resp Reports no additional complaints GI Reports no additional complaints Reports no additional complaints Musc Reports no additional complaints Physical exam (Primary Care) Vital Signs: Last Vital Signs Temp 98.8 F 09/25/24 12:07 Pulse 90 09/25/24 12:07 Resp 18 09/25/24 12:07 BP 108/78 09/25/24 12:07 Pulse Ox 98 09/25/24 12:07 Oxygen Delivery Method Room Air 09/25/24 12:07 BMI result Body Mass Index 34.4 Tobacco/Smoking Status: Tobacco use Status Tobacco use date assessed 09/25/24 09/25/24 12:12 Patient Tobacco Use Status Former Tobacco user 09/25/24 12:00 e-Cigarette/Vaping Use Never Used 09/25/24 12:00 Thrive Assessment: Date of Thrive Assessment Date Thrive assessed 07/10/24 09/25/24 12:00 Currently or been in a relationship where the following occur: I choose not to answer Const General: no acute distress HENMT Head: Yes normal to inspection Ears: hearing grossly normal bilaterally General nose exam: Normal external nose present Face and sinus: Yes normal facial exam Mouth: Normal oral and palatal mucosa present Throat: Yes posterior oropharynx normal Eyes General: appearance normal, both eyes and all related structures Neck Neck: Yes no lymphadenopathy and Yes supple Resp Effort & Inspection: normal respiratory effort Auscultation: clear to auscultation bilaterally Cardio Rhythm: regular rhythm Heart sounds: S1 normal heart sound present and S2 normal heart sound present GI Inspection: Yes normal to inspection Palpation (GI): Soft to palpation Percussion: Yes normal to percussion Auscultation: normal bowel sounds Coding Level of Care Code Est Pt Prev Care 40-64y(22525) Diagnoses Overweight E66.3 Annual physical exam Z00.00 Assessment & Plan Assessment & Plan (1) Overweight: Comment: BMI 36.3 02/2024 Code(s): E66.3 - Overweight Category: Medical Plan: increase Zepbound to 7.5 for 1 month, continue decreasing caloric intake increasing physical activity. If patient tolerates medication well the dose will be increased to 10 mg the following month. 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
[2024-09-25 12:07] VITALS: BP 108/78; PULSE 90; RESP 18; TEMP 37.1; O2SAT 98; BMI 34.4
== END 2024-09-25 13:04 | disposition home or self-care (01) ==
LOC: HO.HMCC 11:48
PROVIDERS: PCP Internal Medicine; Visit Provider Internal Medicine
DX: E66.3 Overweight (principal); Z00.00 Encounter for general adult medical examination without abnormal findings

== ENCOUNTER → 2024-09-25 11:48 | Outpatient (BNVA) | payer BC, SELFPAY | PROVIDERS: PCP Internal Medicine; Visit Provider Internal Medicine | DX: Z13.89 Encounter for screening for other disorder (principal) ==

== ENCOUNTER 2024-11-23 14:03 | Outpatient (AMB) | payer BC, SELFPAY ==
[2024-11-23 15:09] VITALS: BP 128/90; PULSE 80; TEMP 36.9; O2SAT 98; BMI 33.9
--- NOTE | 2024-11-23 15:09 | AM.OFFWIN_ITS ---
Intake Vital Signs 11/23/24 15:09 11/23/24 15:15 Height 5 ft 6 in Weight 210 lb BMI 33.9 BP 128/90 H 142/96 H Blood Pressure Location Lt brachial Rt brachial Position Sitting Sitting Pulse 80 Pulse Source Pulse Oximeter Temp 98.4 F Temp Source Oral Pulse Oximetry (%) 98 Oxygen Delivery Method Room Air Intake Visit Reasons: EP High BP 160/98, headache Intake Note: pt presents with headache for 24hrs Patient Tobacco Use Status: Former Tobacco user Allergies mold Adverse Reaction (Mild, Uncoded 11/23/24 15:10) cough Medication List - Last Reconciled 11/23/24 by Berta Foote NP albuterol sulfate 90 mcg/actuation 2 puffs inhalation Q6H PRN diclofenac potassium 50 mg PO BID 7 days hydrochlorothiazide 25 mg PO DAILY scopolamine base 1 patch transdermal Q3D PRN Zepbound (tirzepatide (weight loss)) 10 mg (0.5 mL) subcut QWEEK NS Do you need a note to return to daycare/school/sports/work: No HPI HPI Comments History of Present Illness Details 44 y/o Female patient who presents to [facility] walk in clinic with c/o Elevated BP readings and Headaches. Reports that Headaches started 2 days ago - denies nausea or vomiting. Denies dizziness, lightheadedness and Vision changes. Reports BP reading of 160/90 this morning at work. 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9 Const General: no acute distress Nutritional Appearance: obese Orientation/consciousness: patient oriented x3 HEENT Head: Yes normocephalic Eyes Pupils: Equal, round and reactive pupils present EOM: EOMs intact bilaterally Resp Effort & Inspection: normal respiratory effort Auscultation: clear to auscultation bilaterally Cardio Heart sounds: S1 normal heart sound present and S2 normal heart sound present Neuro General: patient oriented x3, gait normal and moves all extremities Cranial nerves: Yes Equal, round and reactive pupils present Assessment & Plan Assessment & Plan (1) Essential hypertension: Code(s): I10 - Essential (primary) hypertension Plan: Started her on HCTZ 25 mg, she will f/u with [facility] in 2 weeks for BP check Advised lifestyle changes; Low salt diet, Exercise daily and weight loss. (2) Generalized headaches: Code(s): R51.9 - Headache, unspecified Plan: Ordered Diclofenac BID Rest in dark quiet room Hydrate with plenty of fluids. Avoid high stress. Medications: New hydrochlorothiazide 25 mg PO DAILY 30 tabs 1RF I10 - Essential (primary) hypertension diclofenac potassium 50 mg PO BID 14 tabs 0RF Headaches 7 days R51.9 - Headache, unspecified Coding Level of Care Code Est Pt Level 4 (04500) Diagnoses Essential hypertension I10 Generalized headaches R51.9 Time Spent (min) 20
[2024-11-23 15:15] VITALS: BP 142/96
== END 2024-11-23 15:42 | disposition home or self-care (01) ==
PROVIDERS: PCP Internal Medicine; Visit Provider Nurse Practitioner Family
DX: I10 Essential (primary) hypertension (principal); R51.9 Headache, unspecified

== ENCOUNTER 2024-12-15 07:59 | Outpatient (REF) | payer BC, SELFPAY ==
[2024-12-15 11:17] LABS: Anion Gap 10 (12-20); Blood Urea Nitrogen 19 mg/dL (9-16); Calcium 8.7 mg/dL (8.4-10.2); Carbon Dioxide 26 mmol/L (22-29); Chloride 105 mmol/L (96-108); Estimated Glomerular Filt Rate > 60; Potassium 3.9 mmol/L (3.3-5.1); Sodium 137 mmol/L (135-145)
== END 2024-12-15 08:00 | disposition home or self-care (01) ==
LOC: HO.HMGCLDS 07:59
PROVIDERS: PCP Internal Medicine; Visit Provider Internal Medicine
DX: I10 Essential (primary) hypertension (principal)
CPT/HCPCS: 36415; 80048

== ENCOUNTER 2024-12-26 12:28 | Outpatient (AMB) | payer BC, SELFPAY ==
--- NOTE | 2024-12-26 12:52 | A.OFFPC_ITS ---
Vital Signs 12/26/24 13:01 12/26/24 13:27 Height 5 ft 6 in Weight 206 lb BMI 33.2 BP 110/72 124/84 Blood Pressure Location Rt brachial Rt brachial Position Sitting Sitting Respiration 18 Pulse 91 Pulse Source Pulse Oximeter Temp 98.3 F Temp Source Oral Intake Visit Reasons: 3 months f/up Intake Note: Pt is here today for 3 months follow up visit on BP. Allergies mold Adverse Reaction (Mild, Uncoded 12/26/24 13:01) cough Medication List - Last Reconciled 12/26/24 by Janeth Villalobos MD albuterol sulfate 90 mcg/actuation 2 puffs inhalation Q6H PRN diclofenac potassium 50 mg PO BID 7 days hydrochlorothiazide 25 mg PO DAILY lisinopril 10 mg PO DAILY scopolamine base 1 patch transdermal Q3D PRN Zepbound (tirzepatide (weight loss)) 10 mg (0.5 mL) subcut QWEEK NS Tobacco use date assessed: 12/26/24 Dental Screening Dental Screen Date: 09/25/24 HPI 3 months f/up HPI Details Patient presents for the follow-up on hypertension. She has been taking lisinopril and hydrochlorothiazide and has been monitoring her blood pressure at home with the readings on average 120/70. She complains of hot flashes and insomnia. Patient reports occasionally nausea to 3 days after taking Zepbound. She has been decreasing caloric intake and lost 10 lb since June. 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 1. Little interest or pleasure in doing things: not at all 2. Feeling down, depressed, or hopeless: not at all 3. Trouble falling or staying asleep, or sleeping too much: several days 4. Feeling tired or having little energy: several days 5. Poor appetite or overeating: not at all 6. Feeling bad about yourself - or that you are a failure or have let yourself or your family down: not at all 7. Trouble concentrating on things, such as reading the newspaper or watching television: not at all 8. Moving or speaking so slowly that other people could have noticed. Or the opposite - being so fidgety or restless that you have been moving around a lot more than usual: not at all 9. Thoughts that you would be better off or of hurting yourself in some way: not at all Total score: 2 Depression Screening Interpretation: Negative Depression Screening Done: Yes 63139 - PHQ-9 Billing: Yes Source: Developed by Drs. Charan Rodriguez, Elisabet Shi, Noe Ramos and colleagues, with an educational terese from [employer]. Thrive Questionnaire Date Thrive assessed: 07/10/24 I am a: Patient What is your living situation today?: I have a steady place to live Within the past 12 months, did the food you bought not last and you didn't have the money to get more?: Never true Within the past 12 months, did you worry whether your food would run out before you got money to buy more?: Never true Do you have trouble paying for medicines?: No Do you have trouble getting transportation to medical appointments?: No Do you have trouble paying your heating and electricity bill?: No Do you have trouble taking care of your child, family member or friend?: No Do you have trouble with day-to-day activities such as bathing, preparing meals, shopping, managing finances, etc.?: No Are you currently unemployed and looking for a job?: No Are you interested in more education?: Yes Please select the resources that you would like help with: Education Currently or been in a relationship where the following occur: I choose not to answer THRIVE Score: 0 SAMRA-7 AMB Questionnaire SAMRA-7 Date SAMRA - 7 assessed: 07/12/24 Source: Developed by Drs. Charan Rodriguez, Elisabet Shi, Noe Ramos and colleagues, with an educational terese from [employer]. Review of Systems Const All systems reviewed & are unremarkable except as noted in HPI and below Eyes Reports no additional complaints ENT Reports no additional complaints Card Reports no additional complaints Resp Reports no additional complaints GI Reports no additional complaints Reports no additional complaints Physical exam (Primary Care) Vital Signs: Last Vital Signs Temp 98.3 F 12/26/24 13:01 Pulse 91 12/26/24 13:01 Resp 18 12/26/24 13:01 BP 124/84 12/26/24 13:27 BMI result Body Mass Index 33.2 Tobacco/Smoking Status: Tobacco use Status Tobacco use date assessed 12/26/24 12/26/24 13:02 Patient Tobacco Use Status Former Tobacco user 12/26/24 12:52 e-Cigarette/Vaping Use Never Used 12/26/24 12:52 PHQ-9: PHQ-9 Score PHQ-9: Total score 2 12/26/24 13:30 Depression Screening Interpretation: Negative Thrive Assessment: Date of Thrive Assessment Date Thrive assessed 07/10/24 12/26/24 12:52 Currently or been in a relationship where the following occur: I choose not to answer Const General: no acute distress HENMT Head: Yes normal to inspection Face and sinus: Yes normal facial exam Mouth: Normal oral and palatal mucosa present Eyes General: appearance normal, both eyes and all related structures Neck Neck: Yes supple Resp Effort & Inspection: normal respiratory effort Auscultation: clear to auscultation bilaterally Cardio Rhythm: regular rhythm Heart sounds: S1 normal heart sound present and S2 normal heart sound present GI Inspection: Yes normal to inspection Palpation (GI): Soft to palpation Percussion: Yes normal to percussion Auscultation: normal bowel sounds Coding Level of Care Code Est Pt Level 4 (94668) Diagnoses Perimenopausal N95.1 Essential hypertension I10 Overweight E66.3 Additional Codes PHQ-9 - 15869 - PHQ-9 Billing: Yes ([id number]) Assessment & Plan Assessment & Plan (1) Perimenopausal: Code(s): N95.1 - Menopausal and female climacteric states Category: Medical Plan: Lifestyle modifications regular exercise dietary changes discussed with the patient she will try OTC Estroven supplement (2) Essential hypertension: Code(s): I10 - Essential (primary) hypertension Category: Medical Plan: Continue lisinopril and hydrochlorothiazide low-sodium diet regular physical activity discussed with the patient follow-up in 1 month (3) Overweight: Comment: BMI 36.3 02/2024, lost 20 lb on Zepbound 03/2024-11/2024 Code(s): E66.3 - Overweight Category: Medical Plan: Decreasing caloric intake increasing physical activity discussed with the patient. She will continue 10 mg of Zepbound
[2024-12-26 13:01] VITALS: BP 110/72; PULSE 91; RESP 18; TEMP 36.8; BMI 33.2
[2024-12-26 13:27] VITALS: BP 124/84
== END 2024-12-26 16:01 | disposition home or self-care (01) ==
LOC: HO.HMCC 12:29
PROVIDERS: PCP Internal Medicine; Visit Provider Internal Medicine
DX: N95.1 Menopausal and female climacteric states (principal); I10 Essential (primary) hypertension; E66.3 Overweight

== ENCOUNTER → 2024-12-26 12:28 | Outpatient (BNVA) | payer BC, SELFPAY | PROVIDERS: PCP Internal Medicine; Visit Provider Internal Medicine | DX: I10 Essential (primary) hypertension (principal); N95.1 Menopausal and female climacteric states; E66.3 Overweight; Z68.33 Body mass index [BMI] 33.0-33.9, adult | CPT/HCPCS: 96127 ==

== ENCOUNTER 2025-01-25 12:27 | Outpatient (AMB) | payer BC, SELFPAY ==
--- NOTE | 2025-01-25 12:39 | MHC.PC.OV ---
Vital Signs 01/25/25 12:44 Height 5 ft 6 in Weight 203 lb BMI 32.8 BP 110/78 Blood Pressure Location Lt brachial Position Sitting Respiration 15 Pulse 75 Pulse Source Pulse Oximeter Temp 97.8 F Pulse Oximetry (%) 98 Oxygen Delivery Method Room Air Intake Visit Reasons: 1 month follow up Intake Note: Pt is here today for her 1mo. f/u Allergies mold Adverse Reaction (Mild, Uncoded 01/25/25 12:48) cough Medication List - Last Reconciled 01/25/25 by Janeth Villalobos MD albuterol sulfate 90 mcg/actuation 2 puffs inhalation Q6H PRN hydrochlorothiazide 12.5 mg PO QAM lisinopril 10 mg PO DAILY Zepbound (tirzepatide (weight loss)) 10 mg (0.5 mL) subcut QWEEK NS Tobacco use date assessed: 01/25/25 Dental Screening Dental Screen Date: 01/25/25 Did you have a dental visit in the last 12 months?: No Did you have a dental problem in the last 6 months where you did not have access to dental care?: No Was dental information given to patient?: Patient declined HPI 1 month follow up HPI Details Pt presents for f/u HTN and obesity. Pt has been taking Zepbound 10 mg and lost additional 3 lbs. Pt c/o some nausea on and off but no vomiting or constipation. 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 1. Little interest or pleasure in doing things: not at all 2. Feeling down, depressed, or hopeless: not at all 3. Trouble falling or staying asleep, or sleeping too much: several days 4. Feeling tired or having little energy: several days 5. Poor appetite or overeating: not at all 6. Feeling bad about yourself - or that you are a failure or have let yourself or your family down: not at all 7. Trouble concentrating on things, such as reading the newspaper or watching television: not at all 8. Moving or speaking so slowly that other people could have noticed. Or the opposite - being so fidgety or restless that you have been moving around a lot more than usual: not at all 9. Thoughts that you would be better off or of hurting yourself in some way: not at all Total score: 2 Depression Screening Interpretation: Negative Depression Screening Done: Yes Source: Developed by Drs. Charan Rodriguez, Elisabet Shi, Noe Ramos and colleagues, with an educational terese from [employer]. Thrive Questionnaire Date Thrive assessed: 07/10/24 I am a: Patient What is your living situation today?: I have a steady place to live Within the past 12 months, did the food you bought not last and you didn't have the money to get more?: Never true Within the past 12 months, did you worry whether your food would run out before you got money to buy more?: Never true Do you have trouble paying for medicines?: No Do you have trouble getting transportation to medical appointments?: No Do you have trouble paying your heating and electricity bill?: No Do you have trouble taking care of your child, family member or friend?: No Do you have trouble with day-to-day activities such as bathing, preparing meals, shopping, managing finances, etc.?: No Are you currently unemployed and looking for a job?: No Are you interested in more education?: Yes Please select the resources that you would like help with: Education Currently or been in a relationship where the following occur: I choose not to answer THRIVE Score: 0 AUDIT C Alcohol Use Questionnaire (AUDIT-C) 1. How often do you have a drink containing alcohol?: 2-4 times a month 2. How many drinks containing alcohol do you have on a typical day when you are drinking?: 1 or 2 3. How often do you have six or more drinks on one occasion?: Never Total Score: 2 SAMRA-7 AMB Questionnaire SAMRA-7 Date SAMRA - 7 assessed: 07/12/24 Source: Developed by Drs. Charan Rodriguez, Elisabet Shi, Noe Ramos and colleagues, with an educational terese from [employer]. Review of Systems Const All systems reviewed & are unremarkable except as noted in HPI and below ENT Reports no additional complaints Card Reports no additional complaints Resp Reports no additional complaints GI Reports no additional complaints Reports no additional complaints Physical exam (Primary Care) Vital Signs: Last Vital Signs Temp 97.8 F 01/25/25 12:44 Pulse 75 01/25/25 12:44 Resp 15 01/25/25 12:44 BP 110/78 01/25/25 12:44 Pulse Ox 98 01/25/25 12:44 Oxygen Delivery Method Room Air 01/25/25 12:44 BMI result Body Mass Index 32.8 Tobacco/Smoking Status: Tobacco use Status Tobacco use date assessed 01/25/25 01/25/25 12:41 Patient Tobacco Use Status Former Tobacco user 01/25/25 12:41 e-Cigarette/Vaping Use Never Used 01/25/25 12:41 PHQ-9: PHQ-9 Score PHQ-9: Total score 2 01/25/25 12:41 Depression Screening Interpretation: Negative Thrive Assessment: Date of Thrive Assessment Date Thrive assessed 07/10/24 01/25/25 12:41 Currently or been in a relationship where the following occur: I choose not to answer Const General: no acute distress HENMT Head: Yes normal to inspection Face and sinus: Yes normal facial exam Eyes General: appearance normal, both eyes and all related structures Neck Neck: Yes supple Resp Effort & Inspection: normal respiratory effort Auscultation: clear to auscultation bilaterally Cardio Rhythm: regular rhythm Heart sounds: S1 normal heart sound present and S2 normal heart sound present GI Inspection: Yes normal to inspection Coding Level of Care Code Est Pt Level 4 (93163) Diagnoses Essential hypertension I10 Overweight E66.3 Assessment & Plan Assessment & Plan (1) Essential hypertension: Code(s): I10 - Essential (primary) hypertension Category: Medical Plan: Blood pressure is low on occasions and hydrochlorothiazide will be decreased to 12.5 mg a day. Patient will continue lisinopril. She will follow-up in 2 months (2) Overweight: Comment: BMI 36.3 02/2024, lost 20 lb on Zepbound 03/2024-11/2024 Code(s): E66.3 - Overweight Category: Medical Plan: Continue 10 mg of Zepbound, decrease caloric intake increasing physical activity discussed with the patient Medications: New hydrochlorothiazide 12.5 mg PO QAM 60 tabs 0RF Discontinued hydrochlorothiazide Discontinued Reason: Duplicate 25 mg PO DAILY 30 tabs 1RF I10 - Essential (primary) hypertension
[2025-01-25 12:44] VITALS: BP 110/78; PULSE 75; RESP 15; TEMP 36.6; O2SAT 98; BMI 32.8
== END 2025-01-25 15:42 | disposition home or self-care (01) ==
LOC: HO.HMCC 12:28
PROVIDERS: PCP Internal Medicine; Visit Provider Internal Medicine
DX: I10 Essential (primary) hypertension (principal); E66.3 Overweight